=== PATIENT | male | born 1960 | race Caucasian/White ===

== ENCOUNTER 2017-10-16 10:09 | Outpatient (CLI) | payer BC ==
[2017-10-16 12:13] LABS: Anion Gap 15 mmol/L (10-20); BUN (Urea Nitrogen) 41 mg/dL (8.4-25.7); Calc. Creatinine Clearance 0 mL/min (70-130); Calcium 9.5 mg/dL (7.8-10.44); Carbon Dioxide 27 mmol/L (22-29); Chloride 101 mmol/L (98-107); Estimated GFR-MDRD 40; Glucose 209 mg/dL (70-105); Potassium 3.3 mmol/L (3.5-5.1); Sodium 140 mmol/L (136-145)
== END 2017-10-16 10:10 | disposition home or self-care (01) ==
LOC: LABBT 10:09
PROVIDERS: ATTEND Neurological Surgery
DX: Z01.818 Encounter for other preprocedural examination (principal); M54.16 Radiculopathy, lumbar region
CPT/HCPCS: 80048; 93005; 93010

== ENCOUNTER 2017-10-21 07:23 | Day surgery (SDC) | payer BC ==
[2017-10-16 10:36] VITALS: BMI 38.0
--- NOTE | 2017-10-21 05:59 | HP ---
HISTORY OF PRESENT ILLNESS: Mr. Nuno is a very pleasant 57-year-old gentleman who presents for audra und 2 months worth of right lower extremity L3 or L4 pain. Over the last few weeks, it has improved a great deal and has been more localizing just with right-sided lower back pain. At one time, he did also ; that since resolved. This is in the setting of an MRI from the [facility] that revealed a large superiorly migrated disk fragment at L3-L4 that could account for either L3 or L4 __ ___. This was treated with tramadol and rest from work. He has also had a Depo injection with Dr. Delmy Murdock and then epidural steroid injections at Dr. Mark's office, which did seem to help, bu t just not for any significant lasting period of time. He hopes to move forward with more definitive treatment if possible. PAST MEDICAL HISTORY: Significant for diabetes, gout, hypertension. CURRENT MEDICATIONS: Amlodipine, pioglitazone, Bystolic, colchicine, atorvastatin, allopurinol, glyb uride, valsartan. ALLERGIES: No known drug allergies. PAST SURGICAL HISTORY: Carpal tunnel release bilaterally and nephrectomy. PHYSICAL EXAMINATION: The patient is alert and oriented x3. Gait is normal, no ataxia. Lower extre mity motor exam reveals full strength bilaterally in all muscle groups of the lower extremities. He does have a positive right straight leg raise and a normal left straight leg raise. Reflexes are equ al and present bilaterally at the patella and Achilles. ASSESSMENT: Disk herniation lumbar spine with radiculopathy. PLAN: Dr. Salas met with the patient, reviewed imaging and ultimately advocated for a right L3 diske ctomy. He explained to the patient the risks, benefits, and alternatives to the procedure. The philip ent expressed understanding and would like to move forward with surgery as discussed. I do believe t he patient is mentally capable of making medical decisions for himself and we will move forward with surgery as planned. Johnson Elizabeth PA-C, dictating for Dr. Salas.
[2017-10-21] MEDS ORDERED: Thrombin 5000 UNITS/5 ML VIAL ONE (08:22)
[2017-10-21] MEDS ORDERED: Bupivacaine 0.5% 10 ML VIAL ONE (08:22)
[2017-10-21] MEDS ORDERED: Midazolam HCl 2 mg/2 ml Vial ONE (08:38)
[2017-10-21] MEDS ORDERED: CEFAZOLIN/Water 2 GM/20 ML SYRINGE ONE ×2 (08:52→12:15)
[2017-10-21] MEDS ORDERED: Fentanyl 250 MCG/5 ML VIAL ONE (08:53)
[2017-10-21] MEDS ORDERED: Fentanyl 100 MCG/2 ML VIAL ONE ×2 (10:44→11:03)
--- NOTE | 2017-10-21 11:05 | OP ---
DATE OF PROCEDURE: 10/21/2017 SURGEON: Michael Salas M.D. BUTTING [employer]W OPERATOR: Zander Elizabeth PA-C INDICATION: Pain. DIAGNOSIS: Lumbar radiculopathy. PROCEDURE: Right L3 discectomy. ANESTHESIA: General. TECHNIQUE: The patient was brought into the operating room and placed under general anesthesia. He was flipped from a supine to a prone position on the operating room table. A linear incision was concepción nned over the L3-L4 segment. After prepping and draping and after an appropriate operative pause, th e incision was created. The soft tissues were swept right at midline. A self-retaining retractor wa s placed in the wound for optimal exposure. After confirming the appropriate level with C-arm fluoro scopy, a high-speed cutting drill bit as well as 2, 3 and 4-mm Kerrison used to perform a laminectomy along the inferior aspect of L3. The patient had a superiorly migrated disk fragment. The descendi ng L4 nerve root was mobilized medially. An annulotomy was performed and disk material both within t he disk space, but also located superiorly was carefully removed until the lateral recesses and desce nding nerve roots were well decompressed. The wound was irrigated. Hemostasis was maintained throug hout. The wound was then closed in anatomic layers and a pressure dressing was applied. There were no known procedural complications.
[2017-10-21] MEDS ORDERED: HYDROcodone/Acetaminophen 5/325 mg Tablet ONE ×2 (12:14→12:15)
[2017-10-21] MEDS ORDERED: Promethazine HCl 25 MG/ML VIAL ONE (12:15)
== END 2017-10-21 12:30 | disposition home or self-care (01) ==
LOC: SDC 07:23
PROVIDERS: ATTEND Neurological Surgery
PROC: 0ST20ZZ Resection of Lumbar Vertebral Disc, Open Approach (ICD-10-PCS; principal; 2017-10-21)
PROC: 01NB0ZZ Release Lumbar Nerve, Open Approach (ICD-10-PCS; principal; 2017-10-21)
DX: M54.16 Radiculopathy, lumbar region (principal); M10.9 Gout, unspecified; I10 Essential (primary) hypertension; E78.5 Hyperlipidemia, unspecified; E11.40 Type 2 diabetes mellitus with diabetic neuropathy, unspecified; Z79.84 Long term (current) use of oral hypoglycemic drugs; Z79.899 Other long term (current) drug therapy; Z90.5 Acquired absence of kidney; Z98.890 Other specified postprocedural states
CPT/HCPCS: 76001; 96374; 96375; J2250; J2270; J2550; J3010; J3490

== ENCOUNTER 2017-11-07 10:53 | Outpatient (CLI) | payer BC ==
[2017-11-07 13:31] LABS: #Eosinphils 0.2 thou/uL (0.0-0.7); #Lymphocytes 3.3 thou/uL (1.20-3.40); #Monocytes 0.6 thou/uL (0.11-0.59); #Neutrophils 7.9 thou/uL (1.40-6.50); %Basophils 0.3 % (0.0-1.0); %Eosinophils 1.7 % (0.0-10.0); %Lymphocytes 27.3 % (21.0-51.0); %Monocytes 5.1 % (0.0-10.0); %Neutrophils 65.6 % (42.0-75.0); Mean Corpuscular HGB CONC 33.6 g/dL (32.0-36.0); Mean Corpuscular Hemoglobin 30.8 pg (27.0-31.0); Mean Corpuscular Volume 91.6 fl (80.0-94.0); Platelet Count 191 thou/uL (130-400); RBC Distribution Width 12.4 % (11.5-14.5); Red Blood Cell (RBC) Count 4.87 mill/uL (4.70-6.10)
[2017-11-07 13:54] LABS: Anion Gap 16 mmol/L (10-20); BUN (Urea Nitrogen) 33 mg/dL (8.4-25.7); Calc. Creatinine Clearance 0 mL/min (70-130); Carbon Dioxide 28 mmol/L (22-29); Chloride 100 mmol/L (98-107); Estimated GFR-MDRD 46; Glucose 131 mg/dL (70-105); Potassium 3.3 mmol/L (3.5-5.1); Sodium 141 mmol/L (136-145)
== END 2017-11-07 10:54 | disposition home or self-care (01) ==
LOC: LABBT 10:53
PROVIDERS: ATTEND Specialist
DX: Z01.812 Encounter for preprocedural laboratory examination (principal); K60.2 Anal fissure, unspecified
CPT/HCPCS: 80048; 85025

== ENCOUNTER 2017-11-11 05:48 | Day surgery (SDC) | payer BC ==
[2017-11-07 11:00] VITALS: BMI 38.0
--- NOTE | 2017-11-07 12:21 | HP ---
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 He continues to have a great amount of pain despite using nitro paste comp liantly and uses stool softeners and fiber. The patient is followed by Dr. Orlando. He reports a rip ping, tearing pain with bowel movements and pain was sitting, occasional blood in his stool. He firs t noticed this in 04/2017. He reports repair of L3 and L4 disks 10/21/2017 and had constipation foll owing this exacerbating his fissure. He reports colonoscopy 05/[address] Booth. MEDICATIONS: Benzonatate 3 times a day for cough, cough syrup [id number], Januvia daily, albut jamal sulfate as needed, allopurinol, glimepiride, losartan, hydrochlorothiazide, Bystolic, atorvastat in, amlodipine, meloxicam, colchicine, pioglitazone, albuterol sulfate. PAST MEDICAL HISTORY: Diabetes mellitus type 2, hypertension, gout, metabolic syndrome, obesity, nghia fissure. PAST SURGICAL HISTORY: Carpal tunnel release, rotator cuff shoulder surgery, colonoscopy last year a s noted. REVIEW OF SYSTEMS: Ten point noncontributory. PHYSICAL EXAMINATION: VITAL SIGNS: Blood pressure 137/87, 82, 99 degrees, 283 pounds, 72 inches tall, 38 BMI. HEENT: Unremarkable. LUNGS: Clear to auscultation. CARDIAC: Regular rate and rhythm without murmur or gallop. ABDOMEN: Obese, soft, nontender. EXTREMITIES: Unremarkable. RECTAL: Previous anal exam revealed a posterior anal fissure. ASSESSMENT AND PLAN: 1. Posterior anal fissure refractory to medical management. We will plan exam under anesthesia and sphincterotomy. He does not have symptomatic hemorrhoids and hemorrhoidectomy is not planned. He un derstands dorsal lithotomy under general anesthesia, plan anesthesia. 2. Metabolic syndrome. 3. Diabetes mellitus. 4. Hypertension.
[2017-11-11] MEDS ORDERED: Levofloxacin 500 mg/D5W 100 ml Premix Bag ONE (06:08)
[2017-11-11] MEDS ORDERED: metroNIDAZOLE 500 MG/100 ML BAG ONE (06:08)
[2017-11-11] MEDS ORDERED: Ketorolac Tromethamine 30 MG/ML VIAL ONE (06:08)
[2017-11-11] MEDS ORDERED: HYDROmorphone 0.5 MG/0.5 ML SYRINGE ONE (06:32)
[2017-11-11] MEDS ORDERED: Midazolam HCl 2 mg/2 ml Vial ONE (06:32)
[2017-11-11] MEDS ORDERED: Lidocaine 2% Jelly 5 ML TUBE ONE (06:35)
[2017-11-11] MEDS ORDERED: Bupivacaine HCl 0.5%/Epinephrine 1:200,000/PF 30 ml Vial ONE (06:35)
[2017-11-11] MEDS ORDERED: Non-Formulary Medication 1 EACH PO PRN ×2 (08:18→08:32)
[2017-11-11] MEDS ORDERED: Ondansetron HCl/PF 4 MG/2 ML Vial IVP PRN ×2 (08:18→08:32)
[2017-11-11] MEDS ORDERED: Promethazine HCl 25 MG/ML VIAL IM/IV PRN ×2 (08:18→08:32)
--- NOTE | 2017-11-11 13:20 | OP ---
DATE OF PROCEDURE: 11/11/2017 PREOPERATIVE DIAGNOSIS: Refractory posterior anal fissure. POSTOPERATIVE DIAGNOSIS: Refractory posterior anal fissure. PROCEDURE: Exam under anesthesia noting the postanal fissure right lateral internal sphincterotomy. ANESTHESIA: General anesthesia with local 0.5% Marcaine with epinephrine, 30 mL, mixed with 2% Xyloc joesph, 10 mL mixture used. SURGEON: Dr. Wright. PROCEDURE IN DETAIL: The patient was taken to the operating room under general anesthesia in the pam maren lithotomy position, perianal. Buttock area prepared with Betadine and draped in routine fashion. [place] retractor inserted and a posterior anal fissure appreciated. A right lateral interna l sphincterotomy was performed making a small incision and the internal sphincter muscle dissected fr ee with a hemostat, divided with the cautery. Good hemostasis noted. Skin approximated with continu ous locked suture of 3-0 chromic. Local anesthetic mixture was infiltrated into skin and subcutaneou s tissue. Patient tolerated the procedure well.
[2017-11-11] MEDS ORDERED: diphenhydrAMINE 50 MG/ML VIAL ONE (16:58)
[2017-11-11] MEDS ORDERED: PROPOFOL 200 MG/20 ML VIAL ONE (16:58)
[2017-11-11] MEDS ORDERED: Lidocaine 1% PF 5 ML VIAL ONE (16:58)
[2017-11-11] MEDS ORDERED: Dexamethasone 20 MG/5 ML VIAL ONE (16:58)
[2017-11-11] MEDS ORDERED: Ondansetron HCl/PF 4 MG/2 ML Vial ONE (16:58)
== END 2017-11-11 09:55 | disposition home or self-care (01) ==
LOC: SDC 05:48
PROVIDERS: ATTEND Specialist
PROC: 0D8R3ZZ Division of Anal Sphincter, Percutaneous Approach (ICD-10-PCS; principal; 2017-11-11)
DX: K60.2 Anal fissure, unspecified (principal); E11.9 Type 2 diabetes mellitus without complications; I10 Essential (primary) hypertension; M10.9 Gout, unspecified; E66.9 Obesity, unspecified; Z68.38 Body mass index [BMI] 38.0-38.9, adult; Z79.84 Long term (current) use of oral hypoglycemic drugs; Z79.1 Long term (current) use of non-steroidal anti-inflammatories (NSAID); Z79.899 Other long term (current) drug therapy; Z98.890 Other specified postprocedural states
CPT/HCPCS: J0131; J0670; J1100; J1170; J1200; J1885; J1956; J2001; J2250; J2405; J2704

== ENCOUNTER 2018-04-17 08:48 | Outpatient (CLI) | payer BC ==
--- NOTE | 2018-04-17 10:10 | RAD ---
LUMBAR SPINE THREE VIEWS: History: Back pain with left leg radiculopathy. FINDINGS: Lateral views include neutral, flexion, and extension positioning. Vertebral body heights are maintai natalie. Upon flexion, 0.2 cm spondylolisthesis develops at the L3-4 level. Disc space narrowing the L4-5 level. Moderate osteophytosis throughout the lower vertebral bodies. Pr ominent osteophytosis throughout the lower facet. IMPRESSION: Lumbar spondylosis with mild translational motion at the L3-4 level. POS: LINDA
== END 2018-04-17 08:49 | disposition home or self-care (01) ==
LOC: TBSIIMAG 08:48
PROVIDERS: ATTEND Neurological Surgery
DX: M48.062 Spinal stenosis, lumbar region with neurogenic claudication (principal); M47.896 Other spondylosis, lumbar region
CPT/HCPCS: 72100

== ENCOUNTER 2019-09-18 02:10 | Emergency (ER) | payer BC ==
[2019-09-18] MEDS ORDERED: Metoclopramide HCl 10 MG/2 ML VIAL ONE (02:49)
[2019-09-18] MEDS ORDERED: diphenhydrAMINE 50 MG/ML VIAL ONE (02:49)
[2019-09-18] MEDS ORDERED: Acetaminophen 500 MG TAB ONE (04:17)
[2019-09-18] MEDS ORDERED: Ketorolac Tromethamine 30 MG/ML VIAL ONE (04:17)
== END 2019-09-18 04:25 | disposition home or self-care (01) ==
LOC: ERS 02:10
DX: R51 Headache (principal); I10 Essential (primary) hypertension; M10.9 Gout, unspecified; E78.5 Hyperlipidemia, unspecified; E78.00 Pure hypercholesterolemia, unspecified; Z79.899 Other long term (current) drug therapy
CPT/HCPCS: 85652; 86140; 96365; 96375; J1200; J1885; J2765

== ENCOUNTER 2022-03-27 07:48 | Outpatient (CLI) | payer BC ==
[2022-03-27] MEDS ORDERED: Iopamidol 370 76% 100 ML VIAL ONE (08:43)
== END 2022-03-27 07:49 | disposition home or self-care (01) ==
LOC: CT 07:48
PROVIDERS: ATTEND Urology
DX: C64.1 Malignant neoplasm of right kidney, except renal pelvis (principal); N28.1 Cyst of kidney, acquired; K76.0 Fatty (change of) liver, not elsewhere classified; K76.89 Other specified diseases of liver; Z98.890 Other specified postprocedural states
CPT/HCPCS: 74170; 82565; Q9967

== ENCOUNTER 2022-06-08 08:07 | Outpatient (CLI) | payer BC | END 2022-06-08 08:08 | disposition home or self-care (01) | LOC: BICRAD 08:07 | PROVIDERS: ATTEND Internal Medicine Rheumatology | DX: M17.12 Unilateral primary osteoarthritis, left knee (principal) ==

== ENCOUNTER 2024-06-05 07:36 | Outpatient (CLI) | payer BC | END 2024-06-05 07:37 | disposition home or self-care (01) | LOC: BICULT 07:36 | PROVIDERS: ATTEND Urology | DX: N28.1 Cyst of kidney, acquired (principal) | CPT/HCPCS: 76770 ==